=== PATIENT | male | born 1935 | race Caucasian/White ===

== ENCOUNTER 2017-01-30 10:02 | Inpatient (IN) | payer MEDICARE, OTHER ==
--- NOTE | ~2017-01-30 | DS ---
ADMIT: 01/30/2017 RM/LOC: 301 [facility] MR#: [id number] [facility] [address] [place] [id number] [place] [address] General Discharge Summary SEX: M AGE: 81 : 1935 ADMISSION DATE: 01/30/2017 DISCHARGE DATE: 02/02/2017 SERVICE: Neurosurgery. REASON FOR ADMISSION: NPH workup. PROCEDURE: Lumbar drain placement. HOSPITAL COURSE: Mr. Lund is a very pleasant gentleman. We were initially asked to see him on a previous hospitalization for NPH workup, but he was admitted with urosepsis. We did see him as an outpatient and he has had increased difficulty with his gait. He cannot walk very well. 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 He and his son were present at the appointment and were wishing for more of a definitive workup. Therefore, he was admitted to the hospital for an NPH lumbar drain trial. He has had high volume taps in the past with uncertainty whether these have been effective or not. On the day of admission, his vital signs and labs were stable. A lumbar drain was placed at the bedside by Dr. Smith. He tolerated this quite well. Physical Therapy, Occupational Therapy, and Speech Therapy all evaluated him prior to drain placement and then as well as after drain placement. Hospital day #2, his vital signs were stable. He was awake and alert. He was moving all extremities x4. His lumbar drain was intact. He continued to work with Physical Therapy, Occupational Therapy, and Speech Therapy. Hospital day #3, he was agitated. He was moving all extremities x4. His lumbar drain was intact. He did continue to have a UTI per urinalysis. He continued to work with Physical Therapy, Occupational Therapy, and Speech Therapy with a lot of encouragement and assistance. Hospital day #4, he was awake and alert. He was afebrile. His vital signs were stable. He was still agitated at times. He was moving all extremities x4. His lumbar drain was patent and it was discontinued without difficulty. One Monocryl stitch was applied to the site. He was evaluated by Speech Therapy, Occupational Therapy, and Physical Therapy and all were in agreement, but there was not much improvement or change in his status. He was discharged back to the [facility]. DISCHARGE CONDITION: Good. MEDICATIONS: 1. Allopurinol 100 mg daily. 2. Breo Ellipta 100/25 mcg 1 puff daily. 3. Amlodipine 10 mg daily. 4. Cozaar 25 mg daily. 5. Dulcolax 10 mg suppository daily p.r.n. 6. Eliquis 2.5 mg b.i.d. 7. Fentanyl 50 mcg one patch every 3 days. 8. Fleets enema daily p.r.n. 9. Furosemide 20 mg daily. 10.Hydralazine 50 mg t.i.d. ADMIT: 01/30/2017 RM/LOC: 301 [facility] MR#: [id number] [address] [id number] [place] [address] General Discharge Summary SEX: M AGE: 81 : 1935 11.Lantus 8 units daily. 12.Milk of magnesia 15 mL daily p.r.n. 13.MiraLAX 17 g b.i.d. 14.Oxycodone 5 mg 1-2 tabs q.4 hours p.r.n. 15.Oyster shell calcium with vitamin D daily. 16.Protein powder one scoop b.i.d. 17.Ranitidine 150 mg daily. 18.Senokot-S b.i.d. 19.Spiriva 18 mcg 2 puffs daily. 20.Therapeutic multivitamin daily. 21.Tums 500 mg chewable q.6 p.r.n. 22.Tylenol Extra Strength 500 at bedtime. 23.Tylenol Extra Strength 2 tabs q.8 hours p.r.n. DISCHARGE INSTRUCTIONS: Per Dr. Smith, he can have a regular diet. He should watch for any clear fluid leakage from his site and call if any is noted. He should watch for any signs and symptoms of infection at his puncture site. He should call if he develops a headache and they should lay him flat, if it persists they should call. He should continue with Physical Therapy and Occupational Therapy. He will call with any questions or concerns including neurological worsening, signs or symptoms of infection, or any other issues. FOLLOWUP: He will follow up with Adriana in clinic in 2 weeks. DISPOSITION: He was discharged to [facility]. Total [id number] time for the discharge planning and care coordination was 30 minutes. Adriana Powell APRN / Randolph Smith MD / amber JOB #: [id number] CC: Randolph Smith MD, Attending Physician Juan Marina MD, Family Physician
[~2017-01-30 10:02] MED LIST: ALLOPURINOL1 GM PO; ATIVAN-DPS0.5 MG PO; DULERA 100/58.8 GM IH; OMNICEF DPS300 MG PO; PEPCID DPS20 MG PO; TUMS DPS500 MG PO
[2017-02-03] MEDS ORDERED: ZYLOPRIM-DPS100 MG PO (19:16)
[2017-02-03] MEDS ORDERED: NORVASC DPS10 MG PO (19:16)
[2017-02-03] MEDS ORDERED: BREO ELLIP1 PUFF/DOS IH (19:16)
[2017-02-03] MEDS ORDERED: ELIQUIS2.5 MG PO (19:17)
[2017-02-03] MEDS ORDERED: COZAAR DPS25 MG PO (19:17)
[2017-02-03] MEDS ORDERED: DULCOLAX-DPS10 MG PR (19:17)
[2017-02-03] MEDS ORDERED: FLEET ENEMA133 ML PR (19:18)
[2017-02-03] MEDS ORDERED: DURAGESIC1 EAC1 TD (19:18)
[2017-02-03] MEDS ORDERED: APRESOLINE-DPS50 MG PO (19:18)
[2017-02-03] MEDS ORDERED: LASIX DPS20 MG PO (19:18)
[2017-02-03] MEDS ORDERED: MIRALAX PACKET17 GM PO (19:19)
[2017-02-03] MEDS ORDERED: MILK OF MA400 MG/5 M PO (19:19)
[2017-02-03] MEDS ORDERED: OXY-CONTIN10 MG PO (19:20)
[2017-02-03] MEDS ORDERED: OYSTER SHELL W250 MG PO (19:20)
[2017-02-03] MEDS ORDERED: BENEPROTEIN1 EACH PO (19:21)
[2017-02-03] MEDS ORDERED: LANTUS100 UNITS/ SQ (19:21)
[2017-02-03] MEDS ORDERED: THERAPEUTIC MUL1 TAB PO (19:22)
[2017-02-03] MEDS ORDERED: SENOKOT S1 TAB PO (19:22)
[2017-02-03] MEDS ORDERED: ZANTAC DPS150 MG PO (19:22)
[2017-02-03] MEDS ORDERED: TYLENOL EXTRA500 M1 PO (19:23)
[2017-02-03] MEDS ORDERED: SPIRIVA18 MCG IH (19:23)
--- NOTE | 2017-02-05 09:58 | OR ---
ADMIT: 01/30/2017 RM/LOC: 311 [facility] MR#: [id number] [address] [place] [address] Operative/Delivery Room Report SEX: M AGE: 81 : 1935 SURGERY DATE: 01/30/2017 SURGEON: Randolph Smith MD LIFE SCIENCE RESEARCH ASSISTANT: Adriana Powell APRN. PROCEDURE: Lumbar puncture with Tuohy needle and placement of intrathecal lumbar drain for ambulatory drainage evaluation. PREOPERATIVE DIAGNOSIS: Normal pressure hydrocephalus. POSTOPERATIVE DIAGNOSIS: Normal pressure hydrocephalus. DESCRIPTION OF PROCEDURE: After gaining informed consent, the patient was placed in left lateral decubitus position. Ms. Powell assisted in preparing and draping the patient in usual sterile fashion and obtaining a puncture of the cerebrospinal fluid space in the lumbar 4-5 region. Once this was performed, I passed the intrathecal catheter in and advanced it. There was no sign of complication. CSF was revealed after placement. Pre-placement manometry stabilized with a tidal between 22 and 23 cm of water. The drain was sewn in place with 2-0 silk and then draped. There was no sign of complication. The patient was in bed, talking with us, moving all 4 extremities at the completion of the procedure. Randolph Smith MD/ amber JOB #: [id number] CC: Randolph Smtih, Attending Physician Juan Marina, Family Physician
[2017-05-19] MEDS ORDERED: AUGMENTIN 875-1 EACH PO (16:21)
[2017-05-19] MEDS ORDERED: TYLENOL EXTRA500 M1 PO (16:23)
== END 2017-02-02 13:44 | DRG 57 ==
LOC: 5MS 10:02 → 3ICU 10:02
PROVIDERS: ADMIT Neurological Surgery
PROC: 009U30Z Drainage of Spinal Canal with Drainage Device, Percutaneous Approach (ICD-10-PCS; principal; 2017-01-30)
DX: G91.2 (Idiopathic) normal pressure hydrocephalus (principal); E11.22 Type 2 diabetes mellitus with diabetic chronic kidney disease; N39.0 Urinary tract infection, site not specified; I48.91 Unspecified atrial fibrillation; N40.0 Benign prostatic hyperplasia without lower urinary tract symptoms; I12.9 Hypertensive chronic kidney disease with stage 1 through stage 4 chronic kidney disease, or unspecified chronic kidney disease; N18.9 Chronic kidney disease, unspecified; K21.9 Gastro-esophageal reflux disease without esophagitis; M40.209 Unspecified kyphosis, site unspecified; F32.9 Major depressive disorder, single episode, unspecified; M81.0 Age-related osteoporosis without current pathological fracture; M41.9 Scoliosis, unspecified; G47.33 Obstructive sleep apnea (adult) (pediatric); J45.909 Unspecified asthma, uncomplicated; Z22.39 Carrier of other specified bacterial diseases